=== PATIENT | female | born 1975 | race Caucasian/White ===

== ENCOUNTER 2018-06-07 13:23 | Emergency (ER) | payer MEDICAID ==
[~2018-06-07] VITALS: Wt 68.0 kg
[2018-06-07] MEDS ORDERED: KETOROLAC 30 MG INJ IM STA (14:31)
[2018-06-07] MEDS ORDERED: TRAM50TA2 PO (15:21)
--- NOTE | 2018-06-07 15:23 | ERD ---
ER Documentation Chief Complaint Chief Complaint bilat knee swelling and pain for the past month. no deformity HPI 42-year-old female presents with a one-month history of bilateral knee pain and swelling patient has a history of trauma. She is taking ibuprofen without relief. She denies any redness, fevers, calf swelling, shortness of breath. ROS All systems reviewed and are negative except as per history of present illness. Medications Home Meds Active Scripts Tramadol HCl (Tramadol HCl) 50 Mg Tablet, 50 MG PO Q4 PRN for PAIN, #20 TAB Prov:GOLD ARRIAGA MD 06/07/18 Allergies Allergies: Coded Allergies: Penicillins (Verified Allergy, Intermediate, RASHES, 06/07/18) PMhx/Soc Medical and Surgical Hx: pt denies Medical Hx, pt denies Surgical Hx Hx Alcohol Use: No Hx Substance Use: No Hx Tobacco Use: No Smoking Status: Never smoker FmHx Family History: No diabetes, No coronary disease, No other Physical Exam Vitals Vital Signs Date Temp Pulse Resp B/P (MAP) Pulse Ox O2 O2 Flow FiO2 Time Delivery Rate 06/07/18 98.8 89 18 158/75 98 13:28 (102) Physical Exam Const: No acute distress Head: Atraumatic Eyes: Normal Conjunctiva ENT: Normal External Ears, Nose and Mouth. Neck: Full range of motion. No meningismus. Resp: Clear to auscultation bilaterally Cardio: Regular rate and rhythm, no murmurs Abd: Soft, non tender, non distended. Normal bowel sounds Skin: No petechiae or rashes Back: No midline or flank tenderness Ext: No cyanosis, or edema to bilateral knees mild effusion, tenderness at the anterior medial knee joints without deformities, warmth, erythema. There is no calf swelling or Homans sign. Neur: Awake and alert Psych: Normal Mood and Affect Results 24 hrs Laboratory Tests Test 06/07/18 14:46 06/07/18 14:47 Bedside Urine pH (LAB) 5.5 Bedside Urine Protein (LAB) Negative Bedside Urine Glucose (UA) Negative Bedside Urine Ketones (LAB) Trace Bedside Urine Blood 1+ Bedside Urine Nitrite (LAB) Negative Bedside Urine Leukocyte Esterase (L Negative POC Beta HCG, Qualitative NEGATIVE Current Medications Medications Dose Sig/Malia Start Time Status Last (Trade) Ordered Route PRN Stop Time Admin Dose Reason Admin Ketorolac 30 mg ONCE STAT 06/07/18 DC 06/07/18 Tromethamine IM 14:31 15:15 (Toradol) 06/07/18 14:32 Procedures/MDM X-ray lateral knee 3V Interpreted by me: Bones: No fracture Joints: No dislocation Foreign body: None. Impression-bilateral medial compartment degenerative changes. Patient given Toradol 30 mg IM. Patient presents with bilateral knee pain for last month. She is signs of degenerative changes. She has no evidence of septic arthritis, fracture, dislocation, infection, DVT. She will be treated with tramadol, recommendation for primary care and orthopedic follow-up and return precautions for fevers, redness, new worsening symptoms. The patient was stable with no new complaints during the ER course. Clinically, there is no cu rrent evidence to suggest meningitis, sepsis, acute abdomen, pneumonia, stroke, acute coronary syndrome, pulmonary embolism, aortic dissection or any other emergent condition appearing to require further evaluation or hospitalization. Patient counseled regarding my diagnostic impression and care plan. Prior to discharge all questions answered. Pt agrees with treatment plan and understands strict return precautions. Pt is instructed to follow up with primary care provider within 24-48 hours. Precautionary instructions provided including instructions to return to the ER if not improving or for any worsening or changing symptoms or concerns. Departure Diagnosis: Primary Impression: Knee pain Chronicity: chronic Laterality: bilateral Qualified Codes: M25.561 - Pain in right knee; M25.562 - Pain in left knee; G89.29 - Other chronic pain Condition: Stable Patient Instructions: Knee Pain, Uncertain Cause, Osteoarthritis Referrals: NO PRIMARY,CARE PHYSICIAN (PCP) [facility] () Usted se soto hecho un examen mdico de control que le indica que no est en marizol condicin que requiera tratamiento urgente en el Departamento de Emergencia. Un estudio ms profundo y el tratamiento de morrissey condicin pueden esperar sin ningn riesgo hasta que usted sea atendida/o en el consultorio de morrissey mdico o marizol clnica. Es responsabilidad suya arreglar marizol fiona para el seguimiento del shakeel. MANEJO DE CONDICIONES NO URGENTES EN EL FUTURO 1) Si usted tiene un mdico de atencin primaria: Usted debera llamar a morrissey mdico de atencin primaria antes de venir al departamento de emergencia. Despus de las horas de consultorio, morrissey doctor o morrissey asociado/a est disponible por telfono. El mdico o enfermero de gabby en el servicio telefnico puede asesorarle por jose m medio para atender el problema, o shakeel contrario se puede programar marizol fiona. 2) Si usted no tiene un mdico de atencin primaria: Llame al mdico o clnica de referencia que aparece abajo grace las horas de consultorio para hacer marizol fiona para que le vean. CLINICAS: [facility] [phone] [facility] [phone] [facility] [phone] [facility] [phone] [place] [phone] [facility]. [phone] Additional Instructions: stephani artritis en x isa. Va al morrissey doctor/ specialista para mas evaluacon en el proximo semana. posiblemente necesita autorizado de morrissey doctor primario para specialista. Regresa para fiebre, o mas o nueva simptomas. GOLD ARRIAGA MD Jun 07, 2018 15:23
[2018-06-07 15:30] VITALS: BP 139/74; PULSE 79; RESP 18
== END 2018-06-07 15:31 | disposition home or self-care (01) ==
LOC: FTE 13:23
DX: M25.561 Pain in right knee (principal); M25.562 Pain in left knee
CPT/HCPCS: 73562; 81003; 81025; 96372; J1885; Z7502